=== PATIENT | female | born 1965 | race Caucasian/White ===

== ENCOUNTER 2019-07-05 12:17 | Emergency (ER) | payer BC ==
[2019-07-05] MEDS ORDERED: IBUPROFEN 200 MG TAB PO ONE (12:47)
[2019-07-05] MEDS ORDERED: TETANUS,DIPHTHERIA,PERTUSSIS 1 EA SYG IM ONE (12:51)
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
[2019-07-05 13:55] VITALS: TEMP 99.2; O2SAT 98
[2019-07-05] MEDS ORDERED: NEOMYCIN-BACITRACIN-POLYMYXIN 0.9 GM UD TOP ONE (14:28)
[2019-07-05 15:55] VITALS: BP 186/101
== END 2019-07-05 14:55 | disposition home or self-care (01) ==
LOC: ER 12:17
DX: S52.501A Unspecified fracture of the lower end of right radius, initial encounter for closed fracture (principal); S52.601A Unspecified fracture of lower end of right ulna, initial encounter for closed fracture; Z88.0 Allergy status to penicillin; Z88.2 Allergy status to sulfonamides; V09.20XA Pedestrian injured in traffic accident involving unspecified motor vehicles, initial encounter; Y92.410 Unspecified street and highway as the place of occurrence of the external cause; E89.0 Postprocedural hypothyroidism; Z79.899 Other long term (current) drug therapy; Z23 Encounter for immunization